=== PATIENT | female | born 1965 | race Caucasian/White ===

== ENCOUNTER 2019-05-26 08:00 | Day surgery (SDC) | payer OTHER, SELFPAY ==
[2019-05-23 07:42] VITALS: BMI 35.7
== END 2019-05-26 09:00 | disposition home or self-care (01) ==
LOC: GILAB 11-01 13:10
PROVIDERS: PCP Internal Medicine; Visit Provider Surgery
DX: Z53.9 Procedure and treatment not carried out, unspecified reason (principal)
CPT/HCPCS: J2704; J7030

== ENCOUNTER 2019-08-16 05:52 | Day surgery (SDC) | payer OTHER, SELFPAY ==
[2019-08-15 13:33] VITALS: BMI 35.7
--- NOTE | 2019-08-16 06:31 | P.ANESASSM_ITS ---
Pre-Anesthetic Assessment Pre-Anesthetic Assessment: Height/Weight: Height 1.6 m Weight 91.626 kg Preop Diagnosis: Colonoscopy Proposed Procedure: Operation Date: 08/16/19 07:00 Proposed Procedures p Colonoscopy(Not Applicable) - Elias Ferrera MD Social: Social History: No alcohol and No tobacco Packs per day: 1 Pack years: 34 Exam: Pre-Anes Outpt Exam: alert, oriented x 3, clear to auscultation bilaterally and regular rate & rhythm Airway: Submandibular: WNL Cervical ROM: WNL MP: 2 Pulmonary: Pulmonary: None reported CV/HEM: CV/HEM: None reported : : None reported Hepatic: Hepatic: None reported GI: GI: None reported Metabolic: Comments: stated pre diabetic Musc/skel: Musc/skel: None reported Neuropsych: Neuropsych: None reported Anesthetic Plan: ASA status: 2 Anesthesia: MAC (propofol) PFSH Anesthesia PFSH: Medical History Anxiety Ovarian cancer Surgical History H/O esophagogastroduodenoscopy History of colonoscopy with polypectomy History of tubal ligation S/P BATSHEVA-BSO Family History Family/Other Cancer grandmothers brother in late 70s Denies family history of Anesthesia complication Bleeding disorder Social History Smoking and tobacco status: current every day smoker cigarettes Packs smoked per day: 1 Second hand smoke exposure: No Alcohol intake: never Adopted: No Caregiver/support person: Yes Lives independently: Yes Household members: none Housing: House Marital status: Single Number of children: 2 Number of grandchildren: 4 service: No Current occupational status: employed Current occupational exposures/hazards: No Pets and animals: No History of recent travel: No Sexually active: No Current gender identity: Female John/Taoism: Zoroastrianism Special john needs: No Agree to transfusion: No Financial difficulty paying for basics: Decline to Answer Data Anesthesia Cardiac Studies: No Data to Display
[2019-08-16 06:32] VITALS: BP 116/71; PULSE 77; RESP 18; TEMP 36.6; O2SAT 95
[2019-08-16] MEDS: sodium chloride 0.9% 1,000 ML 30 ML IV (06:46)
--- NOTE | 2019-08-16 07:04 | W.PM.OPSFHP ---
Same Day Surgery H&P Indication for Procedure/HPI DATE OF PROCEDURE: August 16, 2019 CHIEF COMPLAINT/INDICATIONFOR SURGICAL PROCEDURE: fobt+ PREOP DIAGNOSIS: Colonoscopy PLANNED PROCEDRUE: Operation Date: 08/16/19 07:00 Proposed Procedures p Colonoscopy(Not Applicable) - Elias Ferrera MD Medications/Allergies* Home Medications Medication Instructions Recorded Confirmed Type chlorthalidone 25 mg tablet 25 mg PO DAILY 05/04/19 08/15/19 History lorazepam 1 mg tablet 1 mg PO TID PRN 05/04/19 08/15/19 History venlafaxine 75 mg capsule,extended 75 mg PO DAILY 05/04/19 08/15/19 History release 24 hr apremilast [Otezla] 30 mg PO DAILY 05/23/19 08/15/19 History lisinopril 10 mg PO DAILY 08/15/19 08/15/19 History Allergies/Adverse Reactions Allergy/AdvReac Type Severity Reaction Status Date / Time codeine AdvReac ADR-Nausea Verified 05/06/19 16:55 Current Medications: Generic Name Dose Route Start Last Admin Trade Name Freq PRN Reason Stop Dose Admin Sodium Chloride 1,000 mls @ 30 mls/hr 08/16/19 06:30 08/16/19 06:46 Sodium Chloride 0.9% IV 30 mls/hr .Q24H FAHAD Administration Pertinent History/Comorbid Conditions* Medical History (Updated 05/06/19 @ 17:14 by Elias Ferrera MD) Anxiety Ovarian cancer Surgical History (Updated 05/06/19 @ 10:28 by Elias Ferrera MD) H/O esophagogastroduodenoscopy History of colonoscopy with polypectomy History of tubal ligation S/P BATSHEVA-BSO Family History (Updated 05/06/19 @ 09:59 by Anel Bee RN) Cancer Family/Other grandmothers brother in late 70s Denies family history of Anesthesia complication Bleeding disorder Social History Smoking and tobacco status: current every day smoker cigarettes Packs smoked per day: 1 Second hand smoke exposure: No Alcohol intake: never Adopted: No Caregiver/support person: Yes Lives independently: Yes Household members: none Housing: House Marital status: Single Number of children: 2 Number of grandchildren: 4 service: No Current occupational status: employed Current occupational exposures/hazards: No Pets and animals: No History of recent travel: No Sexually active: No Current gender identity: Female Thea/Latter-Day: Restorationism Special thea needs: No Agree to transfusion: No Financial difficulty paying for basics: Decline to Answer Pertinent Exam Findings alert, oriented x 3 and regular rate & rhythm Recommendations Surgery/Procedure today Coding Level of Care Code Acute Case Managers for Anahi Lopez
--- NOTE | 2019-08-16 07:06 | ANES.PREANE2 ---
Pre-Anesthetic Assessment Pre-Anesthetic Assessment: Height/Weight: Height 1.6 m Weight 91.626 kg Temp Pulse Resp BP Pulse Ox 97.8 F 77 18 116/71 95 08/16/19 06:32 08/16/19 06:32 08/16/19 06:32 08/16/19 06:32 08/16/19 06:32 Preop Diagnosis: Colonoscopy Proposed Procedure: Operation Date: 08/16/19 07:00 Proposed Procedures p Colonoscopy(Not Applicable) - Elias Ferrera MD Last intake: Intake Last Liquid Date 08/15/19 Last Liquid Time 21:30 Last Solid Date 08/14/19 Last Solid Time 18:00 Meds/Allergies Current Medications: Current Medications Generic Name Dose Route Start Last Admin Trade Name Freq PRN Reason Stop Dose Admin Sodium Chloride 1,000 mls @ 30 ml s/hr 08/16/19 06:30 08/16/19 06:46 Sodium Chloride 0.9% IV 30 mls/hr .Q24H FAHAD Administration PFSH Anesthesia PFSH: Medical History (Updated 08/16/19 @ 07:26 by Elias Ferrera MD) Anxiety Ovarian cancer Surgical History (Updated 08/16/19 @ 07:26 by Elias Ferrera MD) H/O esophagogastroduodenoscopy History of colonoscopy with polypectomy (08/16/19) History of tubal ligation S/P BATSHEVA-BSO Family History Family/Other Cancer grandmothers brother in late 70s Denies family history of Anesthesia complication Bleeding disorder Social History Smoking and tobacco status: current every day smoker cigarettes Packs smoked per day: 1 Second hand smoke exposure: No Alcohol intake: never Adopted: No Caregiver/support person: Yes Lives independently: Yes Household members: none Housing: House Marital status: Single Number of children: 2 Number of grandchildren: 4 service: No Current occupational status: employed Current occupational exposures/hazards: No Pets and animals: No History of recent travel: No Sexually active: No Current gender identity: Female Thea/Jainism: Pentecostalism Special thea needs: No Agree to transfusion: No Financial difficulty paying for basics: Decline to Answer Data Anesthesia Cardiac Studies: No Data to Display
[2019-08-16 07:28] VITALS: BP 98/63; PULSE 66; RESP 16; TEMP 37.1; O2SAT 99
[2019-08-16 07:40] VITALS: BP 90/60; PULSE 72; RESP 16; O2SAT 98
[2019-08-16 07:51] VITALS: BP 95/62; PULSE 68; RESP 16; O2SAT 97
--- NOTE | 2019-08-16 08:09 | ANE.PACU2 ---
Inpatient post-anesthesia follow up: Airway intact: Yes Vital signs: Temperature 98.8 F Pulse Rate 68 Respiratory Rate 16 Blood Pressure 95/62 Pulse Oximetry 97 Oxygen Delivery Me thod Nasal Cannula Oxygen Flow Rate 3 Fraction of Inspir ed Oxygen Hydration adequate: Yes Nausea and vomiting: No Pain level: 1 Mental status: Baseline
== END 2019-08-16 08:00 | disposition home or self-care (01) ==
PROVIDERS: PCP Internal Medicine; Visit Provider Surgery
PROC: 0DJD8ZZ Inspection of Lower Intestinal Tract, Via Natural or Artificial Opening Endoscopic (ICD-10-PCS; CPT 45378; principal; 2019-08-16 07:00)
DX: Z12.11 Encounter for screening for malignant neoplasm of colon (principal); D12.0 Benign neoplasm of cecum; F17.210 Nicotine dependence, cigarettes, uncomplicated
CPT/HCPCS: 12345; 45380; 88305; J2704; J7030

== ENCOUNTER 2019-11-11 14:16 | Outpatient (CLI) | payer OTHER, SELFPAY ==
--- NOTE | 2019-11-11 14:23 | MM_ITS ---
WS: [id number] BILATERAL DIGITAL SCREENING MAMMOGRAPHY WITH CAD CLINICAL INFORMATION: SCREENING HISTORY: Screening mammogram. No current complaints. COMPARISON: October 04, 2018. TECHNIQUE: Bilateral CC and MLO views. FINDINGS: Scattered fibroglandular densities bilaterally. No suspicious focal mass, asymmetry, calcifications, or architectural distortion. No evidence of malignancy. Lucent centered and punctate calcifications. MM/[place] [id number] IMPRESSION: BI-RADS: 2-Benign FOLLOW UP: 1 Year Follow-up Recommend return to annual screening mammography.
== END 2019-11-11 14:17 | disposition home or self-care (01) ==
LOC: RADSHAW 14:18
PROVIDERS: PCP Internal Medicine; Visit Provider Internal Medicine
DX: Z12.31 Encounter for screening mammogram for malignant neoplasm of breast (principal)
CPT/HCPCS: 77067

== ENCOUNTER 2020-06-19 08:38 | Outpatient (CLI) | payer OTHER, SELFPAY ==
--- NOTE | 2020-06-19 09:33 | XR_ITS ---
WS: [id number] LEFT SHOULDER: 3 VIEW(S) TECHNIQUE: Internal and external rotation with Y view. HISTORY: PAIN IN LEFT SHOULDER COMPARISON: 08/05/2005 No fracture or dislocation or soft tissue abnormality. Glenohumeral and AC joints are unremarkable. XR/XR shoulder LT min 2V* [id number] IMPRESSION: Normal LEFT shoulder.
== END 2020-06-19 08:39 | disposition home or self-care (01) ==
PROVIDERS: PCP Internal Medicine; Visit Provider Internal Medicine
DX: M25.512 Pain in left shoulder (principal)
CPT/HCPCS: 73030

== ENCOUNTER 2020-08-14 06:00 | Outpatient (RCR) | payer OTHER, SELFPAY | END 2020-09-12 23:59 | disposition home or self-care (01) | LOC: SPT 06:00 | PROVIDERS: PCP Internal Medicine; Referring Provider Orthopaedic Surgery; Visit Provider Orthopaedic Surgery | DX: M25.812 Other specified joint disorders, left shoulder (principal) | CPT/HCPCS: 97110; 97162 ==

== ENCOUNTER 2020-09-13 06:00 | Outpatient (RCR) | payer OTHER, SELFPAY | END 2020-10-13 23:59 | disposition home or self-care (01) | LOC: SPT 06:00 | PROVIDERS: PCP Internal Medicine; Referring Provider Orthopaedic Surgery; Visit Provider Orthopaedic Surgery | DX: M25.812 Other specified joint disorders, left shoulder (principal) | CPT/HCPCS: 97110 ==

== ENCOUNTER 2020-12-04 10:40 | Outpatient (CLI) | payer OTHER, SELFPAY ==
--- NOTE | 2020-12-04 10:45 | MM_ITS ---
WS: [id number] BILATERAL SCREENING DIGITAL MAMMOGRAM WITH CAD HISTORY: SCREENING COMPARISON: 11/11/2019 and 10/04/2018 Bilateral CC and MLO views submitted. Computer aided detection analyzed. Breast composition: There are scattered areas of fibroglandular density. No suspicious masses, microc alcifications or architectural distortion. Benign calcifications in each breast. MM/[place] [id number] IMPRESSION: BI-RADS: 2-Benign FOLLOW UP: 1 Year Follow-up
== END 2020-12-04 10:41 | disposition home or self-care (01) ==
LOC: RADSHAW 10:43
PROVIDERS: PCP Internal Medicine; Visit Provider Internal Medicine
DX: Z12.31 Encounter for screening mammogram for malignant neoplasm of breast (principal)
CPT/HCPCS: 77067

== ENCOUNTER 2021-12-06 07:32 | Outpatient (CLI) | payer OTHER, SELFPAY ==
--- NOTE | 2021-12-06 07:45 | MM_ITS ---
WS: [id number] BILATERAL SCREENING DIGITAL TOMOSYNTHESIS MAMMOGRAM WITH CAD HISTORY: SCREEN COMPARISON: 12/04/2020 and 11/11/2019 Bilateral CC and MLO views with tomosynthesis and synthetic mammography submitted. Computer aided det ection analyzed. Breast composition: There are scattered areas of fibroglandular density. No suspicious masses, microc alcifications or architectural distortion. Benign calcifications in each breast. MM/[place] [id number] IMPRESSION: BI-RADS: 2-Benign FOLLOW UP: 1 Year Follow-up
== END 2021-12-06 07:33 | disposition home or self-care (01) ==
LOC: RAD 07:34
PROVIDERS: PCP Internal Medicine; Visit Provider Internal Medicine
DX: Z12.31 Encounter for screening mammogram for malignant neoplasm of breast (principal)
CPT/HCPCS: 77063; 77067

== ENCOUNTER 2022-11-19 16:37 | Outpatient (CLI) | payer OTHER, SELFPAY ==
--- NOTE | 2022-11-19 16:46 | CT_ITS ---
WS: [id number] LDCT LUNG CANCER SCREENING TECHNIQUE: Noncontrast CT of the chest with coronal and sagittal reformatted images. CLINICAL INFORMATION: NICOTINE DEPENDENCE, CIGARETTES COMPARISON: None. DLP: 62.31 mGy.cm DIvol: Mean CTDIvol: 1.40 (mGy) All CT scans at [facility] use at least one of these dose optimization techniques: automat ed exposure control; mA and/or kV adjustment per patient size (includes targeted exams where dose is matched to clinical indication); or iterative reconstruction. FINDINGS: Lungs are well aerated. No suspicious pulmonary parenchymal abnormalities. Normal caliber thoracic aorta. Coronary calcification. No mediastinal or hilar lymphadenopathy. No ax illary lymphadenopathy. Normal GE junction. Adrenal glands are normal. Mild thoracic curve. Mild thoracic kyphosis. Moderate spondylitic changes thoracic spine. IMPRESSION: CT/CT lung screening [id number] LUNG-RADS: 1-Negative FOLLOW UP: 12 Month: Continue annual screening with LDCT
== END 2022-11-19 16:38 | disposition home or self-care (01) ==
LOC: RAD 16:38
PROVIDERS: PCP Internal Medicine; Visit Provider Internal Medicine
DX: Z12.2 Encounter for screening for malignant neoplasm of respiratory organs (principal); F17.218 Nicotine dependence, cigarettes, with other nicotine-induced disorders
CPT/HCPCS: 71271

== ENCOUNTER 2022-12-10 07:39 | Outpatient (CLI) | payer OTHER, SELFPAY ==
--- NOTE | 2022-12-10 | MM_ITS ---
WS: [id number] BILATERAL SCREENING DIGITAL TOMOSYNTHESIS MAMMOGRAM WITH CAD HISTORY: ANNUAL SCREENING COMPARISON: 12/06/2021 and 12/04/2020 Bilateral CC and MLO views with tomosynthesis and synthetic mammography submitted. Computer aided det ection analyzed. Breast composition: There are scattered areas of fibroglandular density. No suspicious masses, microc alcifications or architectural distortion. Benign calcifications in each breast. IMPRESSION: MM/[place] [id number] BI-RADS: 2-Benign FOLLOW UP: 1 Year Follow-up
== END 2022-12-10 07:40 | disposition home or self-care (01) ==
PROVIDERS: PCP Internal Medicine; Visit Provider Internal Medicine
DX: Z12.31 Encounter for screening mammogram for malignant neoplasm of breast (principal)
CPT/HCPCS: 77063; 77067

== ENCOUNTER 2023-12-29 08:05 | Outpatient (CLI) | payer OTHER, SELFPAY ==
--- NOTE | 2023-12-29 08:53 | MM_ITS ---
WS: [id number] BILATERAL 3D TOMOSYNTHESIS DIGITAL SCREENING MAMMOGRAPHY WITH CAD CLINICAL INFORMATION: SCREEN HISTORY: Screening mammogram. No current complaints. COMPARISON: 2022 TECHNIQUE: Bilateral CC and MLO views. FINDINGS: The breasts are composed of heterogeneous fibroglandular density tissue, which can limit the detectio n of small underlying mass lesions. No suspicious mass, asymmetry, calcifications, or architectural d istortion. No evidence of malignancy. Punctate and lucent centered calcifications. Vascular calcifica tions. MM/MM [facility] tomosynthesis [id number] IMPRESSION: DENSITY: The breasts are heterogeneously dense, which may obscure small masses. BI-RADS: 2 - Benign FOLLOW UP: 1 Year Follow-up Recommend return to annual screening mammography.
== END 2023-12-29 08:06 | disposition home or self-care (01) ==
LOC: RAD 08:06
PROVIDERS: PCP Internal Medicine; Visit Provider Internal Medicine
DX: Z12.31 Encounter for screening mammogram for malignant neoplasm of breast (principal); R92.333 Mammographic heterogeneous density, bilateral breasts; R92.1 Mammographic calcification found on diagnostic imaging of breast
CPT/HCPCS: 77063; 77067

== ENCOUNTER 2024-06-24 12:14 | Outpatient (CLI) | payer OTHER, SELFPAY ==
--- NOTE | 2024-06-24 12:20 | CT_ITS ---
WS: [id number] LDCT LUNG CANCER SCREENING TECHNIQUE: Noncontrast CT of the chest with coronal and sagittal reformatted images. CLINICAL INFORMATION: NICOTINE DEPENDENCE,CIGARETTES COMPARISON: None. DLP: 69.50 mGy.cm DIvol: Mean CTDIvol: 1.40 (mGy) All CT scans at [facility] use at least one of these dose optimization techniques: automated exposure control; mA and/or kV adjustment per patient size (includes targeted exams where dose is matched to clinical indication); or iterative reconstruction. FINDINGS: No new suspicious pulmonary parenchymal abnormalities. Moderate thoracic kyphosis. Disc space narrowing worse in the mid and upper thoracic spine with endplate sclerotic changes. Anterior hypertrophic changes thoracic spine. Normal caliber thoracic aorta. No mediastinal or hilar lymphadenopathy. No axillary lymphadenopathy. Aortic and coronary calcification. Adrenal glands are normal. Tiny esophageal hiatal hernia. Food products in a distended stomach. CT/CT lung screening [id number] IMPRESSION: LUNG-RADS: 1-Negative FOLLOW UP: 12 Month: Continue annual screening with LDCT
== END 2024-06-24 12:15 | disposition home or self-care (01) ==
PROVIDERS: PCP Internal Medicine; Visit Provider Internal Medicine
DX: Z12.2 Encounter for screening for malignant neoplasm of respiratory organs (principal); F17.218 Nicotine dependence, cigarettes, with other nicotine-induced disorders; M40.294 Other kyphosis, thoracic region; M51.34 Other intervertebral disc degeneration, thoracic region; M89.38 Hypertrophy of bone, other site; I70.0 Atherosclerosis of aorta; I25.10 Atherosclerotic heart disease of native coronary artery without angina pectoris
CPT/HCPCS: 71271

== ENCOUNTER 2024-12-29 07:45 | Outpatient (CLI) | payer BC, SELFPAY ==
--- NOTE | 2024-12-29 07:50 | MM_ITS ---
WS: [id number] BILATERAL SCREENING DIGITAL TOMOSYNTHESIS MAMMOGRAM WITH CAD HISTORY: ANNUAL SCREEN COMPARISON: 12/29/2023, 12/10/2022, 12/06/2021 Bilateral CC and MLO views with tomosynthesis and synthetic mammography submitted. Computer aided detection analyzed. Breast composition: There are scattered areas of fibroglandular density. No suspicious masses, microcalcifications or architectural distortion. Numerous benign calcifications in each breast. MM/MM scr tomosynthesis [id number] IMPRESSION: BI-RADS: 2 - Benign. FOLLOW UP: 1 Year Follow-up
== END 2024-12-29 07:46 | disposition home or self-care (01) ==
LOC: RAD 07:46
PROVIDERS: PCP Internal Medicine; Visit Provider Internal Medicine
DX: Z12.31 Encounter for screening mammogram for malignant neoplasm of breast (principal); R92.323 Mammographic fibroglandular density, bilateral breasts; R92.1 Mammographic calcification found on diagnostic imaging of breast
CPT/HCPCS: 77063; 77067